=== PATIENT | female | born 1980 | race Caucasian/White ===

== ENCOUNTER 2017-02-21 12:48 | Emergency (ER) | payer SELFPAY ==
[~2017-02-21] VITALS: Ht 162.6 cm; Wt 63.5 kg
[~2017-02-21 12:48] MED LIST: FRS325T PO; PREN1TAB39 PO
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
[2017-02-21] MEDS ORDERED: HYDROCORTISONE (13:20)
[2017-02-21 13:30] VITALS: BP 130/80
== END 2017-02-21 13:30 | disposition home or self-care (01) ==
LOC: EDUNIT# 12:48 → ER 12:50
DX: H60.92 Unspecified otitis externa, left ear (principal); F17.200 Nicotine dependence, unspecified, uncomplicated
CPT/HCPCS: 99282

== ENCOUNTER 2017-04-28 17:40 | Emergency (ER) | payer MEDICAID ==
[~2017-04-28] VITALS: Ht 170.2 cm; Wt 81.7 kg
[~2017-04-28 17:40] MED LIST changes: +HYDROCORTISONE
[2017-04-28 19:17] LABS: BILIRUBIN,URINE NEGATIVE (NEGATIVE); KETONES,URINE 2+ (NEGATIVE); LEUKOCYTE ESTERASE ,URINE 3+ (NEGATIVE); NITRITE,URINE POSITIVE (NEGATIVE); PH,URINE 7 (5-9); PROTEIN,URINE 2+ (NEGATIVE); UROBILINOGEN,URINE 1 MG/DL (NORMAL)
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
[2017-04-28 19:24] LABS: WBC,URINE 50-100 /HPF
[2017-04-28 19:50] LABS: BASOPHILS % (AUTO) 0 % (0-10); EOSINOPHILS % (AUTO) 0 % (0-10); LYMPHOCYTES # (AUTO) 1.3 X 10^3 (1.0-4.0); LYMPHOCYTES % (AUTO) 8 % (12-44); MEAN CORPUSCULAR HEMOGLOBIN 33 PG (25-34); MEAN CORPUSCULAR HGB CONC 34 G/DL (32-36); MEAN CORPUSCULAR VOLUME 96 FL (80-99); MEAN PLATELET VOLUME 8.8 FL (7.4-10.4); MONOCYTES # (AUTO) 0.8 X 10^3 (0.0-1.0); MONOCYTES % (AUTO) 5 % (0-12); NEUTROPHILS # (AUTO) 13.8 X 10^3 (1.8-7.8); NEUTROPHILS % (AUTO) 86 % (42-75); PLATELET COUNT 278 10^3/uL (130-400); RED BLOOD COUNT 3.96 10^6/uL (4.35-5.85); RED CELL DISTRIBUTION WIDTH 12.3 % (10.0-14.5)
[2017-04-28 20:09] LABS: ALANINE AMINOTRANSFERASE 13 U/L (0-55); ANION GAP 15 MMOL/L (5-14); ASPARTATE AMINO TRANSFERASE 15 U/L (5-34); BILIRUBIN,TOTAL 0.9 MG/DL (0.1-1.0); BLOOD UREA NITROGEN 11 MG/DL (7-18); BUN/CREATININE RATIO 14; CARBON DIOXIDE 21 MMOL/L (21-32); CHLORIDE 102 MMOL/L (98-107); CREATININE SERUM 0.76 MG/DL (0.60-1.30); GFR ESTIMATED > 60; GLUCOSE 116 MG/DL (70-105); LIPASE 6 U/L (8-78); SODIUM 138 MMOL/L (135-145); TOTAL PROTEIN 7.4 GM/DL (6.4-8.2); hs C REACTIVE PROTEIN 7.14 MG/DL (0.00-0.50)
[2017-04-28 20:11] LABS: BAND NEUTROPHILS 4 %; BASOPHILS % (MANUAL) 0 %; EOSINOPHILS % (MANUAL) 0 %; LYMPHOCYTES % (MANUAL) 10 %; NEUTROPHILS % (MANUAL) 85 %
[2017-04-28] MEDS ORDERED: cefTRIAXone 1 GM (ROCEPHIN) VIAL IM ONE (20:15)
[2017-04-28] MEDS ORDERED: LIDOCAINE 1% INJ 20 ML (XYLOCAINE) VIAL INJ ONE (20:15)
[2017-04-28] MEDS ORDERED: CEPH500T PO (20:28)
[2017-04-28 20:41] VITALS: BP 138/84
== END 2017-04-28 20:41 | disposition home or self-care (01) ==
LOC: EDUNIT# 17:40 → ER 17:42
DX: T24.031A Burn of unspecified degree of right lower leg, initial encounter (principal); T31.0 Burns involving less than 10% of body surface; N39.0 Urinary tract infection, site not specified; F17.210 Nicotine dependence, cigarettes, uncomplicated; X19.XXXA Contact with other heat and hot substances, initial encounter
CPT/HCPCS: 36415; 80053; 80306; 81000; 83690; 84703; 85007; 85027; 86141; 87077; 87088; 87186; 96372; 99284

== ENCOUNTER 2018-06-12 00:40 | Emergency (ER) | payer MEDICAID ==
[~2018-06-12 00:40] MED LIST changes: +CEPH500T PO
--- OUTSIDE RECORDS SUMMARY | 2018-06-12 00:46 | XMS REPORT ---
Author Author JAMEL COLLIN [facility] Address [address] [place] [address] Care Team Providers Care Stereoptician Name Role Phone JAMELMACARIOCOLLIN Unavailable PROBLEMS Unknown Problems ALLERGIES No Information ENCOUNTERS Encounter Location Date Diagnosis [facility] [address] [address] Nov, [facility] [address] [address] Nov, [facility] [address] [address] Oct, Dysuria R30.0 and Exposure to STD Z20.2 [facility] [id number] [place] [address] Aug, [facility] [address] [address] Aug, Encounter for test, result unknown Z32.00 [place] [id number] [place] [address] Aug, Missed period N92.6 ; Possible exposure to STD Z20.2 ; Cervical cancer screening Z12.4 and Seborrheic keratosis L82.1 [facility] [id number] [place] [address] Nov, [place] [address] [address] Nov, [place] [address] [address] Aug, [place] [address] [place] [address] Aug, [facility] [address] [id number] [place] [address] 30 May, 2013 [facility] [place] [facility] [address] [id number] [place] [address] 30 May, 2013 [facility] [address] [id number] [place] [address] Apr, [facility] [place] [facility] [address] [id number] [place] [address] 27 Nov, 2012 [facility] [address] [id number] [place] [address] 19 Nov, 2012 [facility] [place] [facility] [address] [id number] [place] [address] 18 Nov, 2012 [facility] [address] [id number] [place] [address] 14 Nov, 2012 [facility] [address] [id number] [place] [address] Nov, [facility] [address] [id number] [place] [address] Nov, [facility] [address] [id number] [place] [address] Oct, [facility] [place] [facility] [address] [id number] [place] [address] 24 May, 2012 [facility] [place] [facility] [address] [id number] [place] [address] 24 May, 2012 [facility] [place] [facility] [address] [id number] [place] [address] 16 Feb, 2012 [facility] [place] [facility] [address] [id number] [place] [address] Jan, [facility] [place] [facility] [address] [id number] [place] [address] Nov, [facility] [place] [facility] [address] [id number] [place] [address] 26 Oct, 2011 [facility] [place] [facility] [address] [id number] [place] [address] 22 Oct, 2011 [facility] [place] [facility] [address] [id number] [place] [address] 14 Oct, 2011 [facility] [place] [facility] [address] [id number] [place] [address] 13 Oct, 2011 [facility] [place] [facility] [address] [id number] [place] [address] 12 Oct, 2011 [facility] [place] [facility] [address] [id number] [place] [address] 16 Sep, 2011 [facility] [place] [facility] [address] [id number] [place] [address] 18 Aug, 2011 [facility] [place] [facility] [address] [id number] [place] [address] 21 Jul, 2011 [facility] [place] [facility] [address] [id number] [place] [address] 15 Jul, 2011 [facility] [place] [facility] [address] [id number] [place] [address] 14 Jul, 2011 [facility] [place] [facility] [address] [id number] [place] [address] 14 Jul, 2011 [facility] [place] [facility] [address] [id number] [place] [address] 12 Jul, 2011 [facility] [place] [facility] [address] [id number] [place] [address] 08 Jul, 2011 [facility] [place] [facility] [address] [id number] [place] [address] 29 Jun, 2011 [facility] [place] [facility] [address] [id number] [place] [address] 05 Jun, 2011 [facility] [place] [facility] [address] [id number] [place] [address] Jun, [facility] [address] [facility] [id number] [place] [address] May, [facility] [address] [facility] [id number] [place] [address] May, IMMUNIZATIONS No Known Immunizations SOCIAL HISTORY Never Assessed 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
--- OUTSIDE RECORDS SUMMARY | 2018-06-12 00:46 | XMS REPORT ---
Author Author SEFERINO WAGNER [facility] Address [address] [place] [address] Care Team Providers Care Computer Applications Engineer Name Role Phone SEFERINO WAGNER Unavailable PROBLEMS Unknown Problems ALLERGIES No Information ENCOUNTERS Encounter Location Date Diagnosis [facility] [id number] [place] [address] Nov, [facility] [address] [address] Nov, [facility] [address] [address] Oct, Dysuria R30.0 and Exposure to STD Z20.2 [facility] [id number] [place] [address] Aug, [place] [address] [address] Aug, Encounter for test, result unknown Z32.00 [place] [id number] [place] [address] Aug, Missed period N92.6 ; Possible exposure to STD Z20.2 ; Cervical cancer screening Z12.4 and Seborrheic keratosis L82.1 [facility] [id number] [place] [address] Nov, [place] [address] [address] Nov, [place] [id number] [place] [address] Aug, [facility] [address] [address] Aug, [facility] [address] [id number] [place] [address] 30 May, 2013 [facility] [place] [facility] [address] [id number] [place] [address] 30 May, 2013 [facility] [place] [facility] [address] [id number] [place] [address] Apr, [facility] [place] [facility] [address] [id number] [place] [address] 27 Nov, 2012 [facility] [place] [facility] [address] [id number] [place] [address] 19 Nov, 2012 [facility] [place] [facility] [address] [id number] [place] [address] 18 Nov, 2012 [facility] [address] [id number] [place] [address]- [address] 14 Nov, 2012 [facility] [place] [facility] [address] [id number] [place] [address] Nov, [facility] [address] [id number] [place] [address] Nov, [facility] [place] [facility] [address] [id number] [place] [address] Oct, [facility] [place] [facility] [address] [id number] [place] [address] May, [facility] [place] [facility] [address] [id number] [place] [address] May, [facility] [place] [facility] [address] [id number] [place] [address] 9[address] 16 Feb, 2012 [facility] [place] [facility] [address] [id number] [place] [address] Jan, [facility] [place] [facility] [address] [id number] [place] [address]- [address] Nov, [facility] [place] [facility] [address] [id number] [place] [address]- [address] 26 Oct, 2011 [facility] [address] [id number] [place] [address]- 4[address] 22 Oct, 2011 [facility] [place] [facility] [address] [id number] [place] [address]- 8[address] 14 Oct, 2011 [facility] [place] [facility] [address] [id number] [place] [address]- 6[address] 13 Oct, 2011 [facility] [place] [facility] [address] [id number] [place] [address]- [address] 12 Oct, 2011 [facility] [place] [facility] [address] [id number] [place] [address] 44[address] 16 Sep, 2011 [facility] [place] [facility] [address] [id number] [place] [address]- 85[address] 18 Aug, 2011 [facility] [place] [facility] [address] [id number] [place] [address]- 79[address] 21 Jul, 2011 [facility] [place] [facility] [address] [id number] [place] [address] 37[address] 15 Jul, 2011 [facility] [place] [facility] [address] [id number] [place] [address]- [address] 14 Jul, 2011 [facility] [place] [facility] [address] [id number] [place] [address]- [address] 14 Jul, 2011 [facility] [place] [facility] [address] [id number] [place] [address]- 6[address] 12 Jul, 2011 [facility] [place] [facility] [address] [id number] [place] [address] 08 Jul, 2011 [facility] [place] [facility] [address] [id number] [place] [address] 29 Jun, 2011 [facility] [place] [facility] [address] [id number] [place] [address]- [address] Jun, [facility] [place] [facility] [address] [id number] [place] [address] Jun, [facility] [address] [facility] [id number] [place] [address] May, [facility] [address] [facility] [id number] [address] May, IMMUNIZATIONS No Known Immunizations SOCIAL HISTORY Never Assessed REASON FOR VISIT test (walk-in) PLAN OF CARE VITAL SIGNS MEDICATIONS Unknown Medications RESULTS No Results PROCEDURES Procedure Date Ordered Result Body Site VENIPUNCT, ROUTINE* Sep 01, 2017 CHORIONIC GONADOTROPIN ASSAY Sep 01, 2017 LAB NOT BILLED BY [facility] Sep 01, 2017 INSTRUCTIONS MEDICATIONS ADMINISTERED No Known Medications
--- OUTSIDE RECORDS SUMMARY | 2018-06-12 00:46 | XMS REPORT ---
Author Author SEFERINO WAGNER [facility] Address [address] [place] [address] Care Team Providers Care White Kid Buffer Name Role Phone SEFERINO WAGNER Unavailable PROBLEMS Unknown Problems ALLERGIES No Information ENCOUNTERS Encounter Location Date Diagnosis [facility] [id number] [place] [address] 35845- 9085 Nov, [facility] [address] [address] Nov, [facility] [address] [address] Oct, Dysuria R30.0 and Exposure to STD Z20.2 [facility] [id number] [place] [address] 10202- 0417 Aug, [place] [address] [address]77- 9310 Aug, Encounter for test, result unknown Z32.00 [place] [id number] [place] [address] 33812- 2309 Aug, Missed period N92.6 ; Possible exposure to STD Z20.2 ; Cervical cancer screening Z12.4 and Seborrheic keratosis L82.1 [facility] [id number] [place] [address] 81808- 7430 Nov, [place] [address] 18446- 6611 Nov, [place] [id number] [place] [address] 72246- 9166 Aug, [facility] [address] 067[address]- 7632 Aug, [facility] [address] [id number] [place] [address]- 5786 30 May, 2013 [facility] [place] [facility] [address] [id number] [place] [address]- 9755 30 May, 2013 [facility] [place] [facility] [address] [id number] [place] [address]- 7977 Apr, [facility] [place] [facility] [address] [id number] [place] [address]- 0777 27 Nov, 2012 [facility] [place] [facility] [address] [id number] [place] [address]- 4645 19 Nov, 2012 [facility] [place] [facility] [address] [id number] [place] [address]- 8286 18 Nov, 2012 [facility] [address] [id number] [place] [address]- 8418 14 Nov, 2012 [facility] [place] [facility] [address] [id number] [place] [address]- 9403 Nov, [facility] [address] [id number] [place] [address]- 1877 Nov, [facility] [place] [facility] [address] [id number] [place] [address]- 4201 Oct, [facility] [place] [facility] [address] [id number] [place] [address]- 9951 May, [facility] [place] [facility] [address] [id number] [place] [address]- 0062 May, [facility] [place] [facility] [address] [id number] [place] [address]- 9536 16 Feb, 2012 [facility] [place] [facility] [address] [id number] [place] [address]- 2258 Jan, [facility] [place] [facility] [address] [id number] [place] [address]- 3712 Nov, [facility] [place] [facility] [address] [id number] [place] [address]- 0375 26 Oct, 2011 [facility] [address] [id number] [place] [address]- 3730 22 Oct, 2011 [facility] [place] [facility] [address] [id number] [place] [address]- 8836 14 Oct, 2011 [facility] [place] [facility] [address] [id number] [place] [address]- 4876 13 Oct, 2011 [facility] [place] [facility] [address] [id number] [place] [address]- 2298 12 Oct, 2011 [facility] [place] [facility] [address] [id number] [place] [address]- 9825 16 Sep, 2011 [facility] [place] [facility] [address] [id number] [place] [address]- 1225 18 Aug, 2011 [facility] [place] [facility] [address] [id number] [place] [address]- 7887 21 Jul, 2011 [facility] [place] [facility] [address] [id number] [place] [address]- 0873 15 Jul, 2011 [facility] [place] [facility] [address] [id number] [place] [address]- 1485 14 Jul, 2011 [facility] [place] [facility] [address] [id number] [place] [address]- 8906 14 Jul, 2011 [facility] [place] [facility] [address] [id number] [place] [address]- 0654 12 Jul, 2011 [facility] [place] [facility] [address] [id number] [place] [address]- 1082 08 Jul, 2011 [facility] [place] [facility] [address] [id number] [place] [address]- 6803 29 Jun, 2011 [facility] [place] [facility] [address] [id number] [place] [address]- 2546 Jun, [facility] [place] [facility] [address] [id number] [place] [address]- 7606 Jun, [facility] [address] [facility] [id number] [place] [address]- 7051 May, [facility] [address] [facility] [id number] [place] [address]- 9016 May, IMMUNIZATIONS No Known Immunizations SOCIAL HISTORY Never Assessed REASON FOR VISIT STD treatment (STATE)--[facility] PLAN OF CARE VITAL SIGNS MEDICATIONS Unknown Medications RESULTS No Results PROCEDURES No Known procedures INSTRUCTIONS MEDICATIONS ADMINISTERED No Known Medications
--- OUTSIDE RECORDS SUMMARY | 2018-06-12 00:46 | XMS REPORT ---
Author Author FELIBERTO SIMPSON Organization [facility] Address [address] [place] [address] Care Team Providers Care Tape Fastener Machine Operator Name Role Phone FELIBERTO SIMPSON Unavailable PROBLEMS Unknown Problems ALLERGIES No Information ENCOUNTERS Encounter Location Date Diagnosis [facility] [id number] [place] [address] 14581- 4748 Nov, [facility] [address] [address] Nov, [facility] [id number] [place] [address] 41685 -1111 Oct, Dysuria R30.0 and Exposure to STD Z20.2 [place] [id number] [place] [address] 57972- 6642 Aug, [place] [id number] [place] [address] 81530- 3160 Aug, Encounter for test, result unknown Z32.00 [place] [id number] [place] [address] 99460- 3631 Aug, Missed period N92.6 ; Possible exposure to STD Z20.2 ; Cervical cancer screening Z12.4 and Seborrheic keratosis L82.1 [place] [id number] [place] [address] 02461- 3881 Nov, [place] [id number] [place] [address] 59189- 0498 Nov, [facility] [id number] [place] [address] 33962- 3566 Aug, [place] [id number] [place] [address]- 9932 Aug, [facility] [address] [id number] [place] [address]- 7135 30 May, 2013 [facility] [address] [id number] [place] [address]- 7129 30 May, 2013 [facility] [address] [id number] [place] [address]- 4013 Apr, [facility] [address] [id number] [place] [address]- 7924 27 Nov, 2012 [facility] [address] [id number] [place] [address]- 7653 19 Nov, 2012 [facility] [address] [id number] [place] [address]- 0382 18 Nov, 2012 [facility] [address] [id number] [place] [address]- 8445 14 Nov, 2012 [facility] [address] [id number] [place] [address]- 7264 Nov, [facility] [address] [id number] [place] [address]- 7401 Nov, [facility] [address] [id number] [place] [address]- 8701 Oct, [facility] [address] [id number] [place] [address]- 6524 May, [facility] [address] [id number] [place] [address]- 2251 May, [facility] [address] [id number] [place] [address]- 9432 16 Feb, 2012 [facility] [address] [id number] [place] [address]- 6676 Jan, [facility] [address] [id number] [place] [address]- 6553 Nov, [facility] [address] [id number] [place] [address]- 2668 26 Oct, 2011 [facility] [place] [facility] [address] [id number] [place] [address]- 2157 22 Oct, 2011 [facility] [place] [facility] [address] [id number] [place] 4511 14 Oct, 2011 [facility] [place] [facility] [address] [id number] [place] [address]- 9048 13 Oct, 2011 [facility] [place] [facility] [address] [id number] [place] [address]- 0883 12 Oct, 2011 [facility] [place] [facility] [address] [id number] [place] [address]- 1435 16 Sep, 2011 [facility] [place] [facility] [address] [id number] [place] [address]- 5527 18 Aug, 2011 [facility] [place] [facility] [address] [id number] [place] [address]- 2029 21 Jul, 2011 [facility] [place] [facility] [address] [id number] [place] [address]- 2194 15 Jul, 2011 [facility] [place] [facility] [address] [id number] [place] [address]- 8299 14 Jul, 2011 [facility] [place] [facility] [address] [id number] [place] [address]- 8896 14 Jul, 2011 [facility] [place] [facility] [address] [id number] [place] [address]- 4048 12 Jul, 2011 [facility] [place] [facility] [address] [id number] [place] [address]- 2248 08 Jul, 2011 [facility] [place] [facility] [address] [id number] [place] [address]- 0427 29 Jun, 2011 [facility] [place] [facility] [address] [id number] [place] [address]- 1959 05 Jun, 2011 [facility] [place] [facility] [address] [id number] [place] [address]- 0626 Jun, [facility] [address] [facility] [id number] [place] [address]- 1423 May, [facility] [address] [facility] [id number]- 8563 May, IMMUNIZATIONS No Known Immunizations SOCIAL HISTORY Never Assessed REASON FOR VISIT PLAN OF CARE VITAL SIGNS MEDICATIONS Unknown Medications RESULTS No Results PROCEDURES No Known procedures INSTRUCTIONS MEDICATIONS ADMINISTERED No Known Medications
--- OUTSIDE RECORDS SUMMARY | 2018-06-12 00:46 | XMS REPORT ---
Author Author JAMEL COLLIN [facility] Address [address] [place] [address] Care Team Providers Care Rn X Ray Name Role Phone JAMEL COLLIN Unavailable PROBLEMS Unknown Problems ALLERGIES No Known Allergies ENCOUNTERS Encounter Location Date Diagnosis [facility] [id number] [place] [address] 29712- 4976 Nov, [facility] [address] [address] Nov, [facility] [address] [address] Oct, Dysuria R30.0 and Exposure to STD Z20.2 [facility] [id number] [place] [address] 42774- 3240 Aug, [facility] [address] 38334- 6219 Aug, Encounter for test, result unknown Z32.00 [place] [id number] [place] [address] 66773- 0753 Aug, Missed period N92.6 ; Possible exposure to STD Z20.2 ; Cervical cancer screening Z12.4 and Seborrheic keratosis L82.1 [facility] [id number] [place] [address] 53673- 5484 Nov, [place] [address] 80508- 8832 Nov, [place] [address] 28488- 9434 Aug, [place] [address] [place] [address]- 8418 Aug, [facility] [address] [id number] [place] [address]- 6413 30 May, 2013 [facility] [place] [facility] [address] [id number] [place] [address]- 0899 30 May, 2013 [facility] [address] [id number] [place] [address]- 6592 Apr, [facility] [place] [facility] [address] [id number] [place] [address]- 4995 27 Nov, 2012 [facility] [address] [id number] [place] [address]- 1657 19 Nov, 2012 [facility] [place] [facility] [address] [id number] [place] [address]- 9074 18 Nov, 2012 [facility] [address] [id number] [place] [address]- 8983 14 Nov, 2012 [facility] [address] [id number] [place] [address]- 2399 Nov, [facility] [address] [id number] [place] [address]- 9892 Nov, [facility] [address] [id number] [place] [address]- 8116 Oct, [facility] [address] [id number] [place] [address]- 2201 May, [facility] [place] [facility] [address] [id number] [place] [address]- 4234 May, [facility] [place] [facility] [address] [id number] [place] [address]- 1705 16 Feb, 2012 [facility] [place] [facility] [address] [id number] [place] [address]- 9362 Jan, [facility] [address] [id number] [place] [address]- 6900 Nov, [facility] [place] [facility] [address] [id number] [place] [address]- 1310 26 Oct, 2011 [facility] [place] [facility] [address] [id number] [place] [address]- 7879 22 Oct, 2011 [facility] [place] [facility] [address] [id number] [place] [address]- 6054 14 Oct, 2011 [facility] [place] [facility] [address] [id number] [place] [address]- 6270 13 Oct, 2011 [facility] [place] [facility] [address] [id number] [place] [address]- 8590 12 Oct, 2011 [facility] [place] [facility] [address] [id number] [place] [address]- 6956 16 Sep, 2011 [facility] [place] [facility] [address] [id number] [place] [address]- 6434 18 Aug, 2011 [facility] [address] [id number] [place] [address]- 2570 21 Jul, 2011 [facility] [place] [facility] [address] [id number] [place] [address]- 9929 15 Jul, 2011 [facility] [place] [facility] [address] [id number] [place] [address]- 1105 14 Jul, 2011 [facility] [place] [facility] [address] [id number] [place] [address]- 2917 14 Jul, 2011 [facility] [place] [facility] [address] [id number] [place] [address]- 9881 12 Jul, 2011 [facility] [place] [facility] [address] [id number] [place] [address]- 0164 08 Jul, 2011 [facility] [place] [facility] [address] [id number] [place] [address]- 8690 29 Jun, 2011 [facility] [place] [facility] [address] [id number] [place] [address]- 7974 05 Jun, 2011 [facility] [place] [facility] [address] [id number] [place] [address] 2546 Jun, [facility] [address] [facility] [id number] [place] [address]- 2546 May, [facility] [address] [facility] [id number] [place] [address]- 2546 May, IMMUNIZATIONS No Known Immunizations SOCIAL HISTORY Never Assessed REASON FOR VISIT STD check, No known exposure or symptoms. Also states she is late for her period this month. LMP 07/22/17. -MARC Mac PLAN OF CARE Activity Details Follow Up prn if no period, 1 year well woman Reason: VITAL SIGNS Height 67 in 2017-08-26 Weight 178 lbs 2017-08-26 Temperature 98.4 degrees Fahrenheit 2017-08-26 Heart Rate 96 bpm 2017-08-26 Respiratory Rate 18 2017-08-26 BMI 27.88 kg/m2 2017-08-26 Blood pressure systolic 110 mmHg 2017-08-26 Blood pressure diastolic 70 mmHg 2017-08-26 MEDICATIONS Unknown Medications RESULTS No Results PROCEDURES Procedure Date Ordered Result Body Site URINE TEST Aug 26, 2017 SPECIMEN HANDLING Aug 26, 2017 INSTRUCTIONS MEDICATIONS ADMINISTERED No Known Medications
--- OUTSIDE RECORDS SUMMARY | 2018-06-12 00:46 | XMS REPORT ---
Author Author FELIBERTO SIMPSON [facility] Address [address] [place] [address] Care Team Providers Care Automatic Vulcanizing Lead Operator Name Role Phone FELIBERTO SIMPSON Unavailable PROBLEMS Unknown Problems ALLERGIES No Known Allergies ENCOUNTERS Encounter Location Date Diagnosis [place] [id number] [place] [address] 47521- 2987 Nov, [facility] [address] [address] Nov, [facility] [address] 784[address] -3373 Oct, Dysuria R30.0 and Exposure to STD Z20.2 [place] [id number] [place] [address] 06341- 3578 Aug, [place] [address] 11740- 9191 Aug, Encounter for test, result unknown Z32.00 [place] [id number] [place] [address] 52755- 0270 Aug, Missed period N92.6 ; Possible exposure to STD Z20.2 ; Cervical cancer screening Z12.4 and Seborrheic keratosis L82.1 [place] [id number] [place] [address] 14346- 9606 Nov, [place] [address] 50724- 3896 Nov, [place] [id number] [place] [address] 64903- 9913 Aug, [place] [address] [address] [id number] [address]- 2000 Aug, [facility] [address] [id number] [place] [address]- 4320 May, [facility] [address] [id number] [place] [address]- 8877 30 May, 2013 [facility] [address] [id number] [place] [address]- 1166 Apr, [facility] [address] [id number] [place] [address]- 3640 27 Nov, 2012 [facility] [address] [id number] [place] [address]- 2983 19 Nov, 2012 [facility] [address] [id number] [place] [address]- 6593 18 Nov, 2012 [facility] [address] [id number] [place] [address]- 0016 14 Nov, 2012 [facility] [address] [id number] [place] [address]- 2650 Nov, [facility] [address] [id number] [place] [address]- 4595 Nov, [facility] [address] [id number] [place] [address]- 1860 Oct, [facility] [address] [id number] [place] [address]- 1327 May, [facility] [address] [id number] [place] [address]- 2983 May, [facility] [place] [facility] [address] [id number] [place] [address]- 6218 Jan, [facility] [address] [id number] [place] [address]- 2546 Jan, [facility] [address] [id number] [place] [address]- 4203 Nov, [facility] [address] [id number] [place] [address]- 5112 26 Oct, 2011 [facility] [place] [facility] [address] [id number] [place] [address]- 2576 22 Oct, 2011 [facility] [place] [facility] [address] [id number] [place] [address]- 6235 14 Oct, 2011 [facility] [place] [facility] [address] [id number] [place] [address]- 2297 13 Oct, 2011 [facility] [place] [facility] [address] [id number] [place] [address]- 8649 12 Oct, 2011 [facility] [place] [facility] [address] [id number] [place] [address]- 8285 16 Sep, 2011 [facility] [place] [facility] [address] [id number] [place] [address]- 1925 18 Aug, 2011 [facility] [place] [facility] [address] [id number] [place] [address]- 8922 21 Jul, 2011 [facility] [place] [facility] [address] [id number] [place] [address]- 5604 15 Jul, 2011 [facility] [place] [facility] [address] [id number] [place] [address]- 0303 14 Jul, 2011 [facility] [place] [facility] [address] [id number] [place] [address]- 6776 14 Jul, 2011 [facility] [place] [facility] [address] [id number] [place] [address]- 3359 12 Jul, 2011 [facility] [place] [facility] [address] [id number] [place] [address] 08 Jul, 2011 [facility] [place] [facility] [address] [id number] [place] [address] 29 Jun, 2011 [facility] [place] [facility] [address] [id number] [place] [address] 05 Jun, 2011 [facility] [place] [facility] [address] [facility] [id number] [place] [address] Jun, [facility] [address] [facility] [id number] [place] [address] May, [facility] [address] [facility] [id number] [place] [address] May, IMMUNIZATIONS No Known Immunizations SOCIAL HISTORY Never Assessed REASON FOR VISIT wants std testing for unprotected sex. [email or web address] PLAN OF CARE Activity Details Follow Up prn Reason: VITAL SIGNS Height 67 in 2017-10-30 Weight 178.4 lbs 2017-10-30 Temperature 97.8 degrees Fahrenheit 2017-10-30 Heart Rate 90 bpm 2017-10-30 Respiratory Rate 20 2017-10-30 BMI 27.94 kg/m2 2017-10-30 Blood pressure systolic 116 mmHg 2017-10-30 Blood pressure diastolic 74 mmHg 2017-10-30 MEDICATIONS Unknown Medications RESULTS No Results PROCEDURES Procedure Date Ordered Result Body Site URINALYSIS, AUTO, W/O SCOPE October 30, 2017 No Charge October 30, 2017 Bacterial Vaginosis In House October 30, 2017 LAB NOT BILLED BY [facility] October 30, 2017 INSTRUCTIONS MEDICATIONS ADMINISTERED No Known Medications
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
== END 2018-06-12 01:11 | disposition left against medical advice (07) ==
LOC: EDUNIT# 00:40 → ER 00:42
DX: O26.899 Other specified pregnancy related conditions, unspecified trimester (principal); Z3A.00 Weeks of gestation of pregnancy not specified

== ENCOUNTER 2018-10-21 20:05 | Emergency (ER) | payer SELFPAY ==
[~2018-10-21] VITALS: Ht 167.6 cm; Wt 72.6 kg
[2018-10-21] MEDS ORDERED: KETOROLAC 30 MG/ML VIAL IVP ONE (20:45)
[2018-10-21] MEDS ORDERED: cefTRIAXone FOR IV USE 1,000 MG in WATER (STERILE) FOR INJECTION 10 ML IV ONE (20:45)
[2018-10-21] MEDS ORDERED: AZITHROMYCIN 250 MG TAB (ZITHROMAX) PO SCH (20:45)
[2018-10-21 20:47] LABS: BASOPHILS % (AUTO) 0 % (0-10); CLARITY,URINE VERY CLOUDY; COLOR,URINE AMBER; EOSINOPHILS # (AUTO) 0.1 10^3/uL (0.0-0.3); EOSINOPHILS % (AUTO) 1 % (0-10); GLUCOSE, URINE (UA) NEGATIVE (NEGATIVE); HEMATOCRIT 40 % (35-52); KETONES,URINE 3+ (NEGATIVE); LEUKOCYTE ESTERASE ,URINE 3+ (NEGATIVE); LYMPHOCYTES # (AUTO) 1.1 X 10^3 (1.0-4.0); LYMPHOCYTES % (AUTO) 6 % (12-44); MEAN CORPUSCULAR HEMOGLOBIN 31 PG (25-34); MEAN CORPUSCULAR HGB CONC 33 G/DL (32-36); MEAN CORPUSCULAR VOLUME 95 FL (80-99); MEAN PLATELET VOLUME 9.2 FL (7.4-10.4); MONOCYTES # (AUTO) 0.6 X 10^3 (0.0-1.0); MONOCYTES % (AUTO) 3 % (0-12); NEUTROPHILS % (AUTO) 90 % (42-75); NITRITE,URINE NEGATIVE (NEGATIVE); PH,URINE 7 (5-9); PLATELET COUNT 287 10^3/uL (130-400); PROTEIN,URINE 2+ (NEGATIVE); RED CELL DISTRIBUTION WIDTH 14.3 % (10.0-14.5); UROBILINOGEN,URINE 4 MG/DL (NORMAL); WHITE BLOOD COUNT 17.8 10^3/uL (4.3-11.0)
--- NOTE | 2018-10-21 20:49 | ED Abdominal Pain ---
General Chief Complaint: Abdominal/GI Problems Stated Complaint: ABD PAIN Source of Information: Patient Exam Limitations: No Limitations History of Present Illness Date Seen by Provider: Oct 21, 2018 Time Seen by Provider: 20:48 Initial Comments Diffuse abdominal pain most intense in the lower abdomen and radiates through to her back. No nausea vomiting or change in bowel habits. No fevers or chills. History of an STD and this feels similar. She started with some vaginal discharge today. Timing/Duration: 1-2 Days Severity/Quality: Moderate Location: Generalized Abdomen, Suprapubic Radiation: No Radiation Activities at Onset: None Associated Symptoms: No Fever/Chills, No Nausea/Vomiting Allergies and Home Medications Allergies Coded Allergies: No Known Drug Allergies (Unverified , 11/23/10) Home Medications Cephalexin 500 Mg Tablet, 500 MG PO BID Prescribed by: SUSAN BAZZI on 04/28/172027 [Hydrocortisone otic] , 3 DROPS 3 times a day Prescribed by: BARBRA CARDOZA on 02/21/17 1320 Patient Home Medication List Home Medication List Reviewed: Yes Review of Systems Review of Systems Constitutional: see HPI; No chills, No fever EENTM: No Symptoms Reported Respiratory: No Symptoms Reported Cardiovascular: No Symptoms Reported Gastrointestinal: See HPI, Abdominal Pain; Denies Constipated, Denies Diarrhea , Denies Nausea, Denies Vomiting Genitourinary: See HPI, Discharge Musculoskeletal: see HPI, back pain Skin: no symptoms reported Psychiatric/Neurological: No Symptoms Reported Endocrine: No Symptoms Reported Hematologic/Lymphatic: No Symptoms Reported Past Apwgufv-Zgnkgf-Mxxkms Hx Patient Social History Type Used: Cigarettes 2nd Hand Smoke Exposure: Yes Recent Foreign Travel: No Contact w/Someone Who Travel: No Recent Hopitalizations: No Immunizations Up To Date Tetanus Booster (TDap): Less than 5yrs Date of Influenza Vaccine: May 22, 2011 Seasonal Allergies Seasonal Allergies: No Past Medical History Surgeries: No Respiratory: No Cardiac: No Neurological: No Reproductive Disorders: No Gastrointestinal: Yes Musculoskeletal: No Endocrine: No Cancer: No Psychosocial: No Integumentary: No Blood Disorders: No Adverse Reaction/Blood Tranf: No Physical Exam Vital Signs Vital Signs - First Documented 10/21/18 21:46 Temp 98.8 Resp 18 B/P (MAP) 107/77 (87) Pulse Ox 98 O2 Delivery Room Air Capillary Refill : Height/Weight/BMI Height: 5'7.00" Weight: 180lbs. 0.8oz. 81.271799el; 32.26 BMI Method:Stated General Appearance: WD/WN, no apparent distress HEENT: PERRL/EOMI, normal ENT inspection Respiratory: no respiratory distress, no accessory muscle use Gastrointestinal: normal bowel sounds, soft, tenderness (suprapubic) Extremities: normal range of motion, non-tender Pelvic: tender w/ cervical motion, other (Pelvic exam done with female patient career information specialist at the bedside. There is a mucopurulent cervical discharge. There is cervical motion tenderness.) Neurologic/Psychiatric: alert, normal mood/affect, oriented x 3 Skin: normal color, warm/dry Procedures/Interventions Suture Size: 6-0 Progress/Results/Core Measures Results/Orders Lab Results Laboratory Tests Test 10/21/18 20:19 10/21/18 21:30 Range/Units White Blood Count 17.8 H 4.3-11.0 10^3/uL Red Blood Count 4.18 L 4.35-5.85 10^6/uL Hemoglobin 13.0 11.5-16.0 G/DL Hematocrit 40 35-52 % Mean Corpuscular Volume 95 80-99 FL Mean Corpuscular Hemoglobin 31 25-34 PG Mean Corpuscular Hemoglobin Concent 33 32-36 G/DL Red Cell Distribution Width 14.3 10.0-14.5 % Platelet Count 287 130-400 10^3/uL Mean Platelet Volume 9.2 7.4-10.4 FL Neutrophils (%) (Auto) 90 H 42-75 % Lymphocytes (%) (Auto) 6 L 12-44 % Monocytes (%) (Auto) 3 0-12 % Eosinophils (%) (Auto) 1 0-10 % Basophils (%) (Auto) 0 0-10 % Neutrophils # (Auto) 16.0 H 1.8-7.8 X 10^3 Lymphocytes # (Auto) 1.1 1.0-4.0 X 10^3 Monocytes # (Auto) 0.6 0.0-1.0 X 10^3 Eosinophils # (Auto) 0.1 0.0-0.3 10^3/uL Basophils # (Auto) 0.0 0.0-0.1 10^3/uL Neutrophils % (Manual) 83 % Lymphocytes % (Manual) 8 % Monocytes % (Manual) 1 % Eosinophils % (Manual) 0 % Basophils % (Manual) 0 % Band Neutrophils 8 % Blood Morphology Comment NORMAL Urine Color ELADIO H Urine Clarity VERY CLOUDY H Urine pH 7 5-9 Urine Specific [place] 1.010 L 1.016-1.022 Urine Protein 2+ H NEGATIVE Urine Glucose (UA) NEGATIVE NEGATIVE Urine Ketones 3+ H NEGATIVE Urine Nitrite NEGATIVE NEGATIVE Urine Bilirubin 1+ H NEGATIVE Urine Urobilinogen 4 H NORMAL MG/DL Urine Leukocyte Esterase 3+ H NEGATIVE Urine RBC (Auto) 1+ H NEGATIVE Urine RBC 0-2 /HPF Urine WBC 50-100 H /HPF Urine Crystals NONE /LPF Urine Bacteria FEW H /HPF Urine Casts NONE /LPF Urine Mucus LARGE H /LPF Urine Culture Indicated YES Sodium Level 138 135-145 MMOL/L Potassium Level 3.6 3.6-5.0 MMOL/L Chloride Level 104 98-107 MMOL/L Carbon Dioxide Level 21 21-32 MMOL/L Anion Gap 13 5-14 MMOL/L Blood Urea Nitrogen 12 7-18 MG/DL Creatinine 0.89 0.60-1.30 MG/DL Estimat Glomerular Filtration Rate > 60 BUN/Creatinine Ratio 13 Glucose Level 141 H 70-105 MG/DL Calcium Level 9.4 8.5-10.1 MG/DL Corrected Calcium 9.4 8.5-10.1 MG/DL Total Bilirubin 2.3 H 0.1-1.0 MG/DL Aspartate Amino Transf (AST/SGOT) 15 5-34 U/L Alanine Aminotransferase (ALT/SGPT) 13 0-55 U/L Alkaline Phosphatase 74 40-136 U/L Total Protein 6.9 6.4-8.2 GM/DL Albumin 4.0 3.2-4.5 GM/DL Lipase 6 L 8-78 U/L Serum Test, Qualitative NEGATIVE NEGATIVE My Orders Orders - COLEEN APONTE APRN Cbc With Automated Diff (10/21/18 20:36) Comprehensive Metabolic Panel (10/21/18 20:36) Ua Culture If Indicated (10/21/18 20:36) Hcg,Qualitative Serum (10/21/18 20:36) Iv Heplock-Insert (Order) (10/21/18 20:36) Lipase (10/21/18 20:36) Wet Prep (10/21/18 20:36) Neisseria Gonorrhea Swab (10/21/18 20:36) Genital Culture (10/21/18 20:36) Chlamydia Trachomatis Swab (10/21/18 20:36) Ceftriaxone For Iv Use (Rocephin For I (10/21/18 20:45) Azithromycin Tablet (Zithromax Tablet) (10/21/18 20:45) Ketorolac Injection (Toradol Injection) (10/21/18 20:45) Manual Differential (10/21/18 20:19) Urine Culture (10/21/18 20:19) Ct Abd/Pelv W (Appendicitis) (10/21/18 21:15) Iohexol Injection (Omnipaque 350 Mg/Ml 1 (10/21/18 21:45) Received Contrast (Hold Metformin- Contr (10/21/18 21:45) Medications Given in ED Current Medications Medications Dose Ordered Sig/Paulo Route Start Time Stop Time Status Last Admin Dose Admin Ceftriaxone Sodium 1000 mg/ Sterile Water 10 ml @ 200 mls/hr ONCE ONCE IV 10/21/18 20:45 10/21/18 20:47 DC 10/21/18 22:00 200 MLS/HR Iohexol 100 ml ONCE ONCE IV 10/21/18 21:45 10/21/18 21:46 DC 10/21/18 21:43 100 ML Ketorolac Tromethamine 15 mg ONCE ONCE IVP 10/21/18 20:45 10/21/18 20:46 DC 10/21/18 21:02 15 MG Vital Signs/I&O 10/21/18 21:46 Temp 98.8 Resp 18 B/P (MAP) 107/77 (87) Pulse Ox 98 O2 Delivery Room Air Departure Communication (Admissions) 2210-I discussed the case with Dr. Grant. She agrees with Rocephin and Zithromax here, discharged home on doxycycline and Flagyl. She'll have Yaima from [facility] call the patient tomorrow to set up an appointment to be seen later next week. Symptoms are likely on the basis of pelvic inflammatory disease. Impression Primary Impression: PID (acute pelvic inflammatory disease) Disposition: 01 HOME, SELF-CARE Condition: Stable Departure-Patient Inst. Decision time for Depature: 21:33 Referrals: [facility] (PCP/Family) Primary Care Physician OTONIEL GRANT MD Patient Instructions: Pelvic Inflammatory Disease Add. Discharge Instructions: If [facility] has not called U by noon tomorrow, call them at [phone]. Dr. Grant or one of the other physicians or nurse practitioners at [facility] will follow-up with U next week. He will need to have a pelvic ultrasound scheduled and repeat blood work. In the meantime return to the emergency room for worsening pain, fevers or other concerns. Take the antibiotic as directed and do not mix with alcohol. Scripts Hydrocodone/Acetaminophen ([place] 5-325 Tablet) 1 Each Tablet 1 EACH PO Q6H PRN for PAIN-MODERATE MDD 10, #10 TAB do not fill unless doxycycline and metronidazole are also filled Prov: COLEEN APONTE APRN 10/21/18 Metronidazole (Flagyl) 500 Mg Tablet 500 MG PO BID, #15 TAB Prov: COLEEN APONTE APRN 10/21/18 Doxycycline Hyclate (Doxycycline Hyclate) 100 Mg Tablet 100 MG PO BID, #14 TAB Prov: COLEEN APONTE APRN 10/21/18 COLEEN APONTE APRN Oct 21, 2018 20:49
[2018-10-21 21:04] LABS: BACTERIA,URINE FEW /HPF; BILIRUBIN,URINE 1+ (NEGATIVE); RBC,URINE 0-2 /HPF; WBC,URINE 50-100 /HPF
[2018-10-21 21:08] LABS: BAND NEUTROPHILS 8 %; BASOPHILS % (MANUAL) 0 %; EOSINOPHILS % (MANUAL) 0 %; LYMPHOCYTES % (MANUAL) 8 %; MONOCYTES % (MANUAL) 1 %; NEUTROPHILS % (MANUAL) 83 %; RBC MORPH NORMAL
[2018-10-21 21:09] LABS: ALANINE AMINOTRANSFERASE 13 U/L (0-55); ALKALINE PHOSPHATASE 74 U/L (40-136); BILIRUBIN,TOTAL 2.3 MG/DL (0.1-1.0); BUN/CREATININE RATIO 13; CALCIUM 9.4 MG/DL (8.5-10.1); CARBON DIOXIDE 21 MMOL/L (21-32); CHLORIDE 104 MMOL/L (98-107); CREATININE SERUM 0.89 MG/DL (0.60-1.30); GFR ESTIMATED > 60; GLUCOSE 141 MG/DL (70-105); LIPASE 6 U/L (8-78); POTASSIUM 3.6 MMOL/L (3.6-5.0); SODIUM 138 MMOL/L (135-145); TOTAL PROTEIN 6.9 GM/DL (6.4-8.2)
[2018-10-21] MEDS ORDERED: HOLD METFORMIN - RECEIVED CONTRAST 20 ML VIAL IV SCH (21:45)
[2018-10-21] MEDS ORDERED: IOHEXOL 350 MG/ML 100 ML (OMNIPAQUE 350) VIAL IV ONE (21:45)
--- NOTE | 2018-10-21 22:02 | Diagnostic Imaging Report ---
PROCEDURE: CT abdomen and pelvis with contrast, rule out appendicitis. TECHNIQUE: Multiple contiguous axial images were obtained through the abdomen and pelvis after the administration of intravenous contrast. INDICATION: Lower abdominal pain COMPARISON: None available. FINDINGS: Lower chest: The lung bases are clear. No pericardial or pleural effusion. Peritoneum: No free intraperitoneal air or fluid. Liver and biliary system: The liver is normal. The gallbladder is normal. No biliary duct dilation. Spleen and Pancreas: Spleen is normal. The pancreas enhances normally without mass lesion or peripancreatic inflammatory changes. Adrenals: Normal. tract: The kidneys enhance normally without suspicious mass or obstruction. Urinary bladder is distended without wall thickening. Uterus and ovaries are normal in appearance. There are multiple mildly dilated vessels surrounding the uterus. GI tract: Stomach is filled with fluid and food debris. No bowel obstruction. The majority of the small bowel and colon is fluid-filled likely due to an enteritis. Normal appendix. Vasculature and Lymph nodes: Normal caliber aorta. No abdominal or pelvic lymphadenopathy. Musculoskeletal: No concerning osseous lesion. IMPRESSION: 1. No bowel obstruction. Imaging features suggest enteritis. 2. Normal appendix. 3. Numerous dilated vessels surrounding the uterus can be seen with pelvic congestion syndrome. Dictated by: Dictated on workstation # [id number]
[2018-10-21] MEDS ORDERED: HYDR-4226 PO (22:13)
[2018-10-21] MEDS ORDERED: DOXY100T2 PO (22:13)
[2018-10-21] MEDS ORDERED: METR500T PO (22:13)
[2018-10-21 22:18] VITALS: BP 115/75
[2018-10-21] MEDS ORDERED: HYDROcodone/APAP 5 MG/325 MG (LORTAB) TAB PO ONE (22:30)
== END 2018-10-21 22:34 | disposition home or self-care (01) ==
LOC: EDUNIT# 20:05 → ER 20:05
DX: N73.9 Female pelvic inflammatory disease, unspecified (principal); Z79.51 Long term (current) use of inhaled steroids; Z77.22 Contact with and (suspected) exposure to environmental tobacco smoke (acute) (chronic)
CPT/HCPCS: 36415; 74177; 80053; 81000; 83690; 84703; 85007; 85027; 87070; 87088; 87205; 87210; 87491; 87591

== ENCOUNTER 2018-11-29 23:34 | Emergency (ER) | payer OTHER ==
[~2018-11-29] VITALS: Ht 167.6 cm; Wt 72.6 kg
[~2018-11-29 23:34] MED LIST changes: +DOXY100T2 PO; +HYDR-4226 PO; +METR500T PO
[2018-11-30] MEDS ORDERED: TETANUS,DIPTH,PERTUSS P/F (BOOSTRIX) 0.5 ML VIAL IM ONE
[2018-11-30] MEDS ORDERED: LIDOCAINE/EPI 2% 1:100,00 (XYLOCAINE) 20 ML VIAL INJ ONE
[2018-11-30 00:30] LABS: BASOPHILS % (AUTO) 0 % (0-10); EOSINOPHILS # (AUTO) 0.2 10^3/uL (0.0-0.3); EOSINOPHILS % (AUTO) 3 % (0-10); HEMATOCRIT 37 % (35-52); LYMPHOCYTES # (AUTO) 1.9 X 10^3 (1.0-4.0); LYMPHOCYTES % (AUTO) 35 % (12-44); MEAN CORPUSCULAR HEMOGLOBIN 32 PG (25-34); MEAN CORPUSCULAR HGB CONC 33 G/DL (32-36); MEAN CORPUSCULAR VOLUME 97 FL (80-99); MEAN PLATELET VOLUME 8.8 FL (7.4-10.4); MONOCYTES # (AUTO) 0.7 X 10^3 (0.0-1.0); MONOCYTES % (AUTO) 13 % (0-12); NEUTROPHILS # (AUTO) 2.6 X 10^3 (1.8-7.8); NEUTROPHILS % (AUTO) 49 % (42-75); PLATELET COUNT 242 10^3/uL (130-400); WHITE BLOOD COUNT 5.4 10^3/uL (4.3-11.0)
[2018-11-30 00:51] LABS: ALANINE AMINOTRANSFERASE 48 U/L (0-55); ALBUMIN 4.2 GM/DL (3.2-4.5); ALKALINE PHOSPHATASE 53 U/L (40-136); BILIRUBIN,TOTAL 0.4 MG/DL (0.1-1.0); BUN/CREATININE RATIO 10; CALCIUM 9.2 MG/DL (8.5-10.1); CARBON DIOXIDE 20 MMOL/L (21-32); CHLORIDE 107 MMOL/L (98-107); CREATININE SERUM 0.81 MG/DL (0.60-1.30); GFR ESTIMATED > 60; GLUCOSE 100 MG/DL (70-105); POTASSIUM 3.1 MMOL/L (3.6-5.0); SODIUM 143 MMOL/L (135-145); TOTAL PROTEIN 6.9 GM/DL (6.4-8.2)
[2018-11-30] MEDS ORDERED: ONDANSETRON 4 MG/2 ML (SDV) Z0FRAN IVP ONE (01:45)
[2018-11-30] MEDS ORDERED: KCL 10 MEQ TAB (MICRO K) PO ONE (01:45)
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
[2018-11-30] MEDS ORDERED: ONDANSETRON 4 MG (ZOFRAN) ORAL DISSOLVE TAB SL ONE (02:30)
[2018-11-30 02:33] VITALS: BP 137/88
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
== END 2018-11-30 02:36 ==
LOC: EDUNIT# 23:34 → ER 23:36
DX: S01.81XA Laceration without foreign body of other part of head, initial encounter (principal); F10.129 Alcohol abuse with intoxication, unspecified; M54.2 Cervicalgia; E87.6 Hypokalemia; Z23 Encounter for immunization; Z77.22 Contact with and (suspected) exposure to environmental tobacco smoke (acute) (chronic); V44.5XXA Car driver injured in collision with heavy transport vehicle or bus in traffic accident, initial encounter
CPT/HCPCS: 36415; 70450; 72125; 80053; 80320; 84703; 85025; 90715

== ENCOUNTER 2021-01-08 13:17 | Emergency (ER) | payer SELFPAY ==
[~2021-01-08] VITALS: Ht 172 cm; Wt 80.0 kg
--- NOTE | 2021-01-08 14:03 | ED Abdominal Pain ---
General Chief Complaint: Abdominal/GI Problems Stated Complaint: LLQ PAIN-8 WKS PREG Nursing Triage Note: PT AMB TO ROOM 4 PT CO OF L LOWER ABD PAIN, PT IS APPROX 8 WEEKS . PT STATES WAS SEEN BY [facility] ON THURSDAY AND DX W TRICH, PT IS CURRENTLY TAKING FLAGYL. Sepsis Screen: No Definite Risk History of Present Illness Date Seen by Provider: Jan 08, 2021 Time Seen by Provider: 13:35 Initial Comments Patient is a 40-year-old female who presents to the emergency department today with a chief complaint of left pelvic pain and flank pain. SHe is approximately 9 weeks by dates. . Patient states this pain has been coming on over the last 3 or 4 days. She was seen at [facility] last Thursday and diagnosed with trichomonas. She was given a prescription of Flagyl. She denies any burning with urination increased frequency or urgency. She states that they told her she possibly would have a urinary tract infection but they have not called her to give her any results of her urine test. Patient states her last menstrual period was November 05. This places her at 9 weeks and 1 day. Patient has taken some tylenol for her pain - last dose was last night. She denies vaginal bleeding/discharge. No burning with urination. No n/v/d. Allergies and Home Medications Allergies Coded Allergies: No Known Drug Allergies (Unverified , 11/23/10) Home Medications Cephalexin 500 Mg Tablet, 500 MG PO BID Prescribed by: SUSAN BAZZI on 04/28/172027 Doxycycline Hyclate 100 Mg Tablet, 100 MG PO BID Prescribed by: COLEEN APONTE on 10/21/182212 Hydrocodone/Acetaminophen 1 Each Tablet, 1 EACH PO Q6H PRN for PAIN-MODERATE do not fill unless doxycycline and metronidazole are also filled Prescribed by: COLEEN APONTE on 10/21/182212 Metronidazole 500 Mg Tablet, 500 MG PO BID Prescribed by: COLEEN APONTE on 10/21/182212 [Hydrocortisone otic] , 3 DROPS 3 times a day Prescribed by: BARBRA CARDOZA on 02/21/17 1320 Patient Home Medication List Home Medication List Reviewed: Yes Review of Systems Review of Systems Constitutional: no symptoms reported EENTM: See HPI Respiratory: No Symptoms Reported Cardiovascular: No Symptoms Reported Gastrointestinal: Abdominal Pain Genitourinary: No Symptoms Reported Musculoskeletal: no symptoms reported Skin: no symptoms reported All Other Systems Reviewed Negative Unless Noted: Yes Past Ntrjtsu-Ofdthb-Euormf Hx Patient Social History Type Used: Cigarettes 2nd Hand Smoke Exposure: Yes Recent Infectious Disease Expo: No Recent Hopitalizations: No Immunizations Up To Date Tetanus Booster (TDap): Less than 5yrs Date of Influenza Vaccine: May 22, 2011 Seasonal Allergies Seasonal Allergies: No Past Medical History Surgeries: No Respiratory: No Cardiac: No Neurological: No : Yes Last Menstrual Period: Nov 05, 2020 Reproductive Disorders: No Gastrointestinal: Yes Musculoskeletal: No Endocrine: No HEENT: No Cancer: No Psychosocial: No Integumentary: No Blood Disorders: No Adverse Reaction/Blood Tranf: No Physical Exam Vital Signs Vital Signs - First Documented 01/08/21 13:37 Temp 36.9 Pulse 101 Resp 18 B/P (MAP) 116/79 (91) Pulse Ox 100 Capillary Refill : Less Than 3 Seconds Height/Weight/BMI Height: 5'6.00" Weight: 160lbs. 0.8oz. 72.402802mg; 27.00 BMI Method:Stated General Appearance: WD/WN, no apparent distress HEENT: PERRL/EOMI Neck: full range of motion Respiratory: lungs clear, normal breath sounds, no respiratory distress, no accessory muscle use Cardiovascular: regular rate, rhythm Gastrointestinal: normal bowel sounds, soft, tenderness (mild tenderness to palpation Left flank/low abdomen) Extremities: non-tender, normal inspection, no pedal edema, no calf tenderness Back: normal inspection, no CVA tenderness Pelvic: other (deferred) Neurologic/Psychiatric: alert, normal mood/affect, oriented x 3 Skin: normal color, warm/dry Procedures/Interventions Suture Size: 6-0 Progress/Results/Core Measures Results/Orders Lab Results Laboratory Tests Test 01/08/21 14:09 Range/Units Urine Color YELLOW Urine Clarity CLEAR Urine pH 7.0 5-9 Urine Specific [place] <=1.005 1.016-1.022 Urine Protein NEGATIVE NEGATIVE Urine Glucose (UA) NEGATIVE NEGATIVE Urine Ketones NEGATIVE NEGATIVE Urine Nitrite NEGATIVE NEGATIVE Urine Bilirubin NEGATIVE NEGATIVE Urine Urobilinogen 0.2 < = 1.0 MG/DL Urine Leukocyte Esterase TRACE H NEGATIVE Urine RBC (Auto) NEGATIVE NEGATIVE Urine RBC NONE /HPF Urine WBC RARE /HPF Urine Squamous Epithelial Cells 5-10 /HPF Urine Crystals NONE /LPF Urine Bacteria TRACE /HPF Urine Casts NONE /LPF Urine Mucus NEGATIVE /LPF Urine Culture Indicated NO My Orders Orders - APPLE MEZA MD Ua Culture If Indicated (01/08/21 13:58) Acetaminophen Tablet (Tylenol Tablet) (01/08/21 14:45) Vital Signs/I&O 01/08/21 01/08/21 13:37 15:12 Temp 36.9 Pulse 101 88 Resp 18 18 B/P (MAP) 116/79 (91) 114/72 (91) Pulse Ox 100 100 Blood Pressure Mean: 91 Progress Progress Note : Time: 15:00 Progress Note Patient reassured, urine is within normal limits, no evidence of infection. I did identify via bedside ultrasound heart motion in the uterus. I do not believe that the patient is as far along as she believes she is however. She wheels out to be 9 weeks and 1 day[address] her due date at August 14, 2021. Patient has not yet established at [facility] for OB care but is in the process of doing so. I advised against hot baths for her pain. Not at this stage in anyways. Tylenol at 1000 mg every 6 hours, the lidocaine patches and ice packs. I have given patient good return precautions to include returning if she develops a rash, fever, vomiting, blood in her urine or any other emergent concerns. She is comfortable with this plan of care. All questions were sought and answered. At this stage I do not believe that she has a kidney stone. Her pain is too low in the left flank. I do not have a concern for ectopic . Patient is comfortable with discharge home. Departure Impression Primary Impression: Left flank pain Additional Impression: First trimester Disposition: 01 HOME, SELF-CARE Condition: Stable Departure-Patient Inst. Decision time for Depature: 15:02 Referrals: [facility] (PCP/Family) Primary Care Physician Patient Instructions: - The Second Month Add. Discharge Instructions: Drink plenty of fluids to stay well-hydrated. You can take 2 extra strength Tylenol every 6 hours as needed for pain. Use ice packs to the sore area of your left back. You can also use the lidocaine patches. Follow-up with [facility]. Come back to the emergency department for any worsening pain especially if you develop a rash, fever, blood in your urine or any other emergent concerning symptoms. APPLE MEZA MD Jan 08, 2021 14:03
[2021-01-08 14:15] LABS: BILIRUBIN,URINE NEGATIVE (NEGATIVE); CLARITY,URINE CLEAR; COLOR,URINE YELLOW; GLUCOSE, URINE (UA) NEGATIVE (NEGATIVE); KETONES,URINE NEGATIVE (NEGATIVE); LEUKOCYTE ESTERASE ,URINE TRACE (NEGATIVE); NITRITE,URINE NEGATIVE (NEGATIVE); PROTEIN,URINE NEGATIVE (NEGATIVE)
[2021-01-08 14:27] LABS: BACTERIA,URINE TRACE /HPF; WBC,URINE RARE /HPF
[2021-01-08] MEDS ORDERED: ACETAMINOPHEN 500 MG TAB (TYLENOL) PO ONE (14:45)
[2021-01-08 15:12] VITALS: BP 114/72
== END 2021-01-08 15:12 | disposition home or self-care (01) ==
LOC: EDUNIT# 13:17 → ER 13:19
DX: O26.891 Other specified pregnancy related conditions, first trimester (principal); R10.32 Left lower quadrant pain; Z3A.09 9 weeks gestation of pregnancy; Z77.22 Contact with and (suspected) exposure to environmental tobacco smoke (acute) (chronic)
CPT/HCPCS: 81000; 99283

== ENCOUNTER → 2021-03-14 | Outpatient (CLI) | payer MEDICAID ==
[2021-03-14 16:06] LABS: BASOPHILS % (AUTO) 0 % (0-10); EOSINOPHILS # (AUTO) 0.1 10^3/uL (0.0-0.3); EOSINOPHILS % (AUTO) 1 % (0-10); HEMATOCRIT 33 % (35-52); LYMPHOCYTES # (AUTO) 2.1 10^3/uL (1.0-4.0); LYMPHOCYTES % (AUTO) 19 % (12-44); MEAN CORPUSCULAR HEMOGLOBIN 32 pg (25-34); MEAN CORPUSCULAR HGB CONC 34 g/dL (32-36); MEAN CORPUSCULAR VOLUME 96 fL (80-99); MEAN PLATELET VOLUME 9.2 fL (9.0-12.2); MONOCYTES # (AUTO) 0.6 10^3/uL (0.0-1.0); MONOCYTES % (AUTO) 5 % (0-12); NEUTROPHILS # (AUTO) 8.4 10^3/uL (1.8-7.8); NEUTROPHILS % (AUTO) 74 % (42-75); PLATELET COUNT 302 10^3/uL (130-400); WHITE BLOOD COUNT 11.3 10^3/uL (4.3-11.0)
== END ==
LOC: LAB 15:31
PROVIDERS: ATTEND Family Medicine
DX: Z34.92 Encounter for supervision of normal pregnancy, unspecified, second trimester (principal); Z3A.00 Weeks of gestation of pregnancy not specified
CPT/HCPCS: 36415; 84443; 85025; 86703; 86762; 86780; 86850; 86900; 86901; 87340

== ENCOUNTER 2021-08-16 06:30 | Inpatient (IN) | payer MEDICAID ==
[~2021-08-16] VITALS: Ht 170 cm; Wt 100.5 kg
[2021-08-20] VITALS (49 sets, daily range): BP systolic 85–146; BP diastolic 45–87
[2021-08-20] MEDS ORDERED: PREN1TAB79 PO (06:12)
[2021-08-20] MEDS ORDERED: MEPIVACAINE (CARBOCAINE) 2% 50 ML VIAL INJ PRN (06:15)
[2021-08-20] MEDS ORDERED: D5 LR IV SOLUTION 1,000 ML IV SCH (06:15)
[2021-08-20] MEDS ORDERED: MINERAL OIL CONCENTRATE 99.9% 15 ML UDC TOP PRN (06:15)
[2021-08-20] MEDS ORDERED: D5 LR IV SOLUTION 1,000 ML IV ONE (06:35)
--- NOTE | 2021-08-20 06:35 | History & Physical-OB ---
OB - Chief Complaint & HPI Date/Time Date of Admission: Date of Admission: Aug 20, 2021 at 06:00 Date seen by a Provider: Aug 20, 2021 Time Seen by a Provider: 06:30 Chief Complaint/History OB-Reason for Admission/Chief: Induction of Labor Hx : 7 Hx Para: 4 Expected Date of Delivery: Aug 23, 2021 Gestational Age in Weeks: 39 Gestational Age in Days: 4 Admission Nurse Assessment Rev: Yes History of Labs GBS negative at 36 weeks gestation Allergies and Home Medications Allergies Coded Allergies: No Known Drug Allergies (Unverified , 11/23/10) Patient Home Medication List Home Medication List Reviewed: Yes Vit W-Ca,Fe,FA(<1 mg) ( Vitamins) 1 Each Tablet, 1 EACH PO, (Reported) Entered as Reported by: VERITO GARCIA on 08/20/21611 Last Action: New Order Discontinued Medications Cephalexin (Cephalexin) 500 Mg Tablet, 500 MG PO BID Discontinued Reason: No Longer Taking Prescribed by: SUSAN BAZZI on 04/28/172027 Last Action: Discontinued Doxycycline Hyclate (Doxycycline Hyclate) 100 Mg Tablet, 100 MG PO BID Discontinued Reason: No Longer Taking Prescribed by: COLEEN APONTE on 10/21/182212 Last Action: Discontinued Hydrocodone/Acetaminophen (Hydrocodone/Acetaminophen 5 MG/325 MG TAB) 1 Each Tablet, 1 EACH PO Q6H PRN for PAIN-MODERATE Discontinued Reason: No Longer Taking Prescribed by: COLEEN APONTE on 10/21/182212 Last Action: Discontinued Metronidazole (Flagyl) 500 Mg Tablet, 500 MG PO BID Discontinued Reason: No Longer Taking Prescribed by: COLEEN APONTE on 10/21/182212 Last Action: Discontinued [Hydrocortisone otic] , 3 DROPS 3 times a day Discontinued Reason: No Longer Taking Prescribed by: BABRRA CARDOZA on 02/21/17 1320 Last Action: Discontinued OB - History Hx of Present Care: Yes Ultrasounds: Normal mid trimester US Obstetrical Complications: None Medical Complications: None Obstetrical History Hx Termination: No Hx Multiple Gestation: No Hx Stillbirth: No Hx Complication: No Hx Induced Hypertens: No Hx Maternal Gestational Diabet: No Delivery History Hx Dystocia: No Hx Large For Gestational Age I: No Hx Small for Gestational Age I: No Hx Section: No Hx Vaginal Delivery Post C-Sec: No Hx Blood Disorders: No Adverse Rxn to Tranfusion: No Patient Past Medical History 2021 Covid during Social History/Family History 2nd Hand Smoke Exposure: Yes Immunizations Influenza Vaccine Up-to-Date: No; Not Current Tetanus Booster (TDap): Less than 5yrs OB - Admission Exam Physical Exam Vitals: Vital Signs 08/20/21 06:22 Temp 35.6 Pulse 107 Resp 16 Pulse Ox 99 O2 Delivery Room Air HEENT: Moist Membranes Heart: Rhythm Normal Lungs: Clear Abdomen: Gravid Cervical Dilatation: 2cm Effacement: 75% Station: -3 Membranes: Intact Heart Rate: 140's Accelerations: No Accelerations Decelerations: No Decelerations Short Term Variability: Present Acid Recovery Operator Variability: Minimal (3-5) Contractions on Admission: >10 Minutes Apart Intensity: Mild Bravo Scoring Tool (Modified) Dilation (cm): 1-2cm (1) Effacement (%): 51-79% (2) Descent/Station: -3 (0) Cervix Consistency: Medium(1) Cervix Position: Middle/Mid-Position (1) OB - Assessment/Plan/Diagnosis Assessment Assessment: induction of labor Admission Dx 1. IUP at term 39w4d gestation 2. Advanced maternal age Admission Status: Inpatient Order (span 2 midnights) Reason for Inpatient Admission: L&D Plan Plan: Induction Induction Method: AROM Other Plan -pitocin as necessary -desires epidural GLADYS CARDONA MD Aug 20, 2021 06:35
[2021-08-20] MEDS ORDERED: OXYTOCIN PRE-MIX DRIP 500 ML IV SCH ×2 (07:30→17:15)
[2021-08-20 08:16] LABS: BASOPHILS % (AUTO) 0 % (0-10); EOSINOPHILS # (AUTO) 0.1 10^3/uL (0.0-0.3); EOSINOPHILS % (AUTO) 1 % (0-10); HEMATOCRIT 34 % (35-52); HEMOGLOBIN 11.5 g/dL (11.5-16.0); LYMPHOCYTES # (AUTO) 2.2 10^3/uL (1.0-4.0); LYMPHOCYTES % (AUTO) 20 % (12-44); MEAN CORPUSCULAR HEMOGLOBIN 30 pg (25-34); MEAN CORPUSCULAR HGB CONC 34 g/dL (32-36); MEAN CORPUSCULAR VOLUME 90 fL (80-99); MEAN PLATELET VOLUME 9.4 fL (9.0-12.2); MONOCYTES # (AUTO) 0.8 10^3/uL (0.0-1.0); MONOCYTES % (AUTO) 7 % (0-12); NEUTROPHILS # (AUTO) 7.7 10^3/uL (1.8-7.8); NEUTROPHILS % (AUTO) 71 % (42-75); PLATELET COUNT 264 10^3/uL (130-400); WHITE BLOOD COUNT 10.8 10^3/uL (4.3-11.0)
[2021-08-20] MEDS ORDERED: fentaNYL 2 mcg/ml BUPIVA 0.125 100 ML ONE (10:20)
[2021-08-20] MEDS ORDERED: BUPIVACAINE 0.25% 30 ML (SENSORCAINE) VIAL ONE (10:37)
[2021-08-20] MEDS ORDERED: fentaNYL INJ 100 MCG/2 ML AMP ONE (10:37)
[2021-08-20] MEDS ORDERED: LACTATED RINGERS 1,000 ML IV ONE (11:15)
[2021-08-20] MEDS ORDERED: NALOXONE 0.4 MG/ML 1 ML (NARCAN) VIAL IV PRN ×2 (11:15→17:15)
[2021-08-20] MEDS ORDERED: fentaNYL 2 mcg/ml BUPIVA 0.125 100 ML IV SCH (11:15)
[2021-08-20] MEDS ORDERED: CATHETER FLUSH 10 ML SYR IV PRN (11:15)
[2021-08-20] MEDS ORDERED: CATHETER FLUSH 10 ML SYR IV SCH (14:00)
--- NOTE | 2021-08-20 17:05 | OB Labor & Delivery Record ---
L&D History Date of Service Date of Service: Aug 20, 2021 History Expected Date of Delivery: Aug 23, 2021 Gestational Age in Weeks: 39 Hx : 7 Hx Para: 5 Complications Events: Routine care Operative Indications (Cesarea: N/A-Vaginal Delivery Intrapartal Events: None L&D Stage1 Stage One Onset of Labor - Date: Aug 20, 2021 Onset of Labor - Time: 06:55 Monitors and Tracing Monitor Mode: Internal Heart Rate: 135 Monitor Accelerations: Uniform Monitor Decelerations: None Station: 0 Multifocal Button Inspector Variability: Average (6-10) Short Term Variability: Present Presentation: Vertex Vital Signs VS - Last 72 Hours, by Label 08/20/21 08/20/21 08/20/21 08/20/21 06:22 07:45 08:15 08:30 Temp 35.6 36.8 Pulse 107 83 87 86 Resp 16 20 20 20 B/P (MAP) 122/72 (89) 118/77 (91) 101/73 (82) Pulse Ox 99 O2 Delivery Room Air 08/20/21 08/20/21 08/20/21 08/20/21 08:45 09:00 09:15 09:30 Pulse 88 83 86 90 Resp 20 20 20 20 B/P (MAP) 108/72 (84) 122/73 (89) 123/76 (92) 115/83 (94) 08/20/21 08/20/21 08/20/21 08/20/21 09:45 10:00 10:15 10:30 Pulse 79 85 83 83 Resp 20 20 20 20 B/P (MAP) 116/63 (80) 113/72 (86) 110/71 (84) 115/75 (88) 08/20/21 08/20/21 08/20/21 08/20/21 10:45 10:50 11:00 11:05 Temp 36.0 Pulse 84 85 83 90 Resp 20 20 20 20 B/P (MAP) 134/87 (103) 127/83 (98) 127/74 (91) 129/73 (91) Pulse Ox 100 100 100 08/20/21 08/20/21 08/20/21 08/20/21 11:10 11:15 11:20 11:25 Pulse 89 90 88 90 Resp 20 20 20 20 B/P (MAP) 123/70 (87) 119/68 (85) 116/65 (82) 129/63 (85) Pulse Ox 99 97 97 98 08/20/21 08/20/21 08/20/21 08/20/21 11:30 11:45 12:00 12:15 Pulse 86 84 84 80 Resp 20 20 20 20 B/P (MAP) 114/59 (77) 118/69 (85) 117/69 (85) 112/70 (84) Pulse Ox 98 97 98 97 08/20/21 08/20/21 08/20/21 08/20/21 12:30 12:45 13:00 13:15 Temp 36.2 Pulse 77 84 84 76 Resp 20 20 20 20 B/P (MAP) 110/72 (85) 108/70 (83) 97/54 (68) 106/68 (81) Pulse Ox 96 99 100 99 08/20/21 08/20/21 08/20/21 08/20/21 13:30 13:45 14:00 14:15 Pulse 95 78 81 104 Resp 20 20 20 20 B/P (MAP) 108/74 (85) 123/70 (87) 120/71 (87) 116/70 (85) Pulse Ox 100 99 100 100 08/20/21 08/20/21 08/20/21 08/20/21 14:30 14:45 15:00 15:15 Pulse 85 85 84 77 Resp 20 20 20 20 B/P (MAP) 117/75 (89) 120/74 (89) 120/78 (92) 126/79 (95) Pulse Ox 97 100 100 100 Signs of Distress by FHT Signs of Distress no Rupture of Membranes Spontaneous Ruture of Membrane: No Amniotic Membrane Rupture Time: 0646 Amniotic Membrane Fluid Desc.: Clear Vaginal Bleeding Description: None Induction/Anesthesia Epidural Cath Placement - Time: 1048 L&D Stage2 Stage Two Stage II Date: Aug 20, 2021 Stage II Time: 16:28 Monitors and Tracing Monitor Mode: Internal Heart Rate: 135 Monitor Accelerations: Uniform Monitor Decelerations: None Fdc Variability: Average (6-10) Short Term Variability: Present Position: Left Occiput Anterior Presentation: Vertex Signs of Distress by FHT Signs of Distress no Cord Descript/Complications Cord Vessel Description: 3 Vessels Delivery Type Infant Delivery Method: Spontaneous Vaginal Anterior Shoulder: Left Episiotomy/Perineal Laceration Laceraction(s)/Extensions: No Episiotomy Description: Perineal Extension/lac, 1st degree (minor) Sutures Used: Vicryl Condition of Infant Delivery 1 minute Comment: 8 5 minute Comment: 9 Condition of Infant Condition of Infant: Living Exam: No Observed Abnormalities Resuscitation Resuscitation: N/A - Spontaneous Resp L&D Stage3 Stage Three Stage III Date: Aug 20, 2021 Stage III Time: 16:34 Pictocin Pitocin Administration mu/min: 14 Pitocin ml/hr: 125 Placenta Delivery Placenta Delivery: Spontaneous Delivery Summary Summary Estimated blood loss (mL): 150 Condition of Delivery Examined: Cervix Examined Post Hemorrhage: No Intervention Required none GLADYS CARDONA MD Aug 20, 2021 17:05
[2021-08-20] MEDS ORDERED: MEASLES,MUMPS,RUBELLA 1 EA INJ SQ ONE (17:15)
[2021-08-20] MEDS ORDERED: WITCH HAZEL(TUCKS) 40 EA JAR TOP PRN (17:15)
[2021-08-20] MEDS ORDERED: BENZOCAINE/MENTHOL (DERMOPLAST) 56 ML CAN TP PRN (17:15)
[2021-08-20] MEDS ORDERED: TETANUS,DIPTH,PERTUSS P/F (BOOSTRIX) 0.5 ML VIAL IM ONE (17:15)
[2021-08-20] MEDS: ACETAMINOPHEN 500 MG TAB (TYLENOL) PO SCH (18:29)
[2021-08-20] MEDS: IBUPROFEN 600 MG (MOTRIN) TAB PO SCH ×2 (18:29→22:26)
[2021-08-20] MEDS: DOCUSATE SODIUM 100 MG (COLACE) CAP PO SCH (22:26)
[2021-08-20] MEDS: CATHETER FLUSH 10 ML SYR IV SCH (22:26)
[2021-08-21 02:15] VITALS: BP 112/62
[2021-08-21] MEDS: IBUPROFEN 600 MG (MOTRIN) TAB PO SCH ×3 (05:17→18:07)
[2021-08-21] MEDS: ACETAMINOPHEN 500 MG TAB (TYLENOL) PO SCH ×2 (05:39)
[2021-08-21] MEDS: CATHETER FLUSH 10 ML SYR IV SCH (06:05)
[2021-08-21 08:33] LABS: BASOPHILS % (AUTO) 0 % (0-10); EOSINOPHILS # (AUTO) 0.1 10^3/uL (0.0-0.3); EOSINOPHILS % (AUTO) 1 % (0-10); HEMATOCRIT 30 % (35-52); HEMOGLOBIN 10.4 g/dL (11.5-16.0); LYMPHOCYTES # (AUTO) 2.7 10^3/uL (1.0-4.0); LYMPHOCYTES % (AUTO) 23 % (12-44); MEAN CORPUSCULAR HEMOGLOBIN 31 pg (25-34); MEAN CORPUSCULAR HGB CONC 34 g/dL (32-36); MEAN CORPUSCULAR VOLUME 90 fL (80-99); MEAN PLATELET VOLUME 9.7 fL (9.0-12.2); MONOCYTES % (AUTO) 8 % (0-12); NEUTROPHILS % (AUTO) 67 % (42-75); PLATELET COUNT 215 10^3/uL (130-400)
[2021-08-21 12:29] VITALS: BP 115/55
[2021-08-21] MEDS: DOCUSATE SODIUM 100 MG (COLACE) CAP PO SCH (12:29)
--- NOTE | 2021-08-21 13:33 | Discharge Summary ---
Diagnosis/Chief Complaint Date of Admission Aug 20, 2021 at 06:00 Date of Discharge August 21, 2021 Admission Diagnosis Admission Diagnosis 1. Intrauterine at 39 weeks gestation 2. Advanced maternal age Discharge Diagnosis 1. Intrauterine at 39 weeks gestation 2. Advanced maternal age Chief Complaint/HPI Chief Complaint/HPI 41-year-old female 7 now term 5 L5 and initially presented for induction of labor during the morning of August 20, 2021. She was noted to be at 39 weeks 4 days gestation. Her care was essentially unremarkable except during the last week of her she did develop Covid 19. Discharge Summary-OBS Procedures 1. Epidural per anesthesia 2. Spontaneous vaginal delivery 3. Repair of minor perineal tear Discharge Physical Examination Allergies: Coded Allergies: No Known Drug Allergies (Unverified , 11/23/10) Vitals & I&Os Vital Sign - Last 12Hours Date Time Temp Pulse Resp B/P (MAP) Pulse Ox O2 Delivery O2 Flow Rate FiO2 08/21/21 12:29 35.9 90 16 115/55 (75) 99 Room Air General Appearance: No Acute Distress Respiratory: Clear to Auscultation Cardiovascular: Regular Rate Abdominal: Soft (with uterus firm) Neuro: Normal Speech Hospital Course Was the Problem List Reviewed?: Yes upon admission she underwent routine antepartum care orders. She did require PICC line for IV access due to poor peripheral veins. She also underwent epidural per anesthesia during labor and had excellent pain relief. She required Pitocin augmentation. Eventually she went to completion and delivered a term viable male over a very minor perineal laceration. If received Apgars of 8 at 1 minute and 9 at 5 minutes. See labor and delivery note for full details. Following delivery patient underwent routine care orders. She had no complications during the remainder of hospital stay. She tolerated regular diet and was noted to have no significant vaginal bleeding. Her hemoglobin in the morning of August 21 was noted to be 10.4 compared to 11.5 on admission. Labs Laboratory Tests 08/21/21 08:16: White Blood Count 12.0H, Red Blood Count 3.37L, Hemoglobin 10.4L, Hematocrit 30L , Mean Corpuscular Volume 90, Mean Corpuscular Hemoglobin 31, Mean Corpuscular Hemoglobin Concent 34, Red Cell Distribution Width 12.9, Platelet Count 215, Maureen n Platelet Volume 9.7, Immature Granulocyte % (Auto) 1, Neutrophils (%) (Auto) 67, Lymphocytes (%) (Auto) 23, Monocytes (%) (Auto) 8, Eosinophils (%) (Auto) 1, Basophils (%) (Auto) 0, Neutrophils # (Auto) 8.0H, Lymphocytes # (Auto) 2.7, Monocytes # (Auto) 1.0, Eosinophils # (Auto) 0.1, Basophils # (Auto) 0.0, Immature Granulocyte # (Auto) 0.1 Discharge Instructions to patient/family Please see electronic discharge instructions given to patient. Discharge Medications Reviewed and agree with Discharge Medication list on patient's Discharge Instruction sheet GLADYS CARDONA MD Aug 21, 2021 13:33
[2021-08-21] MEDS ORDERED: IBUP-844 PO (13:34)
--- NOTE | 2021-08-21 13:36 | Discharge Inst-Women's Service ---
Discharge Inst-Women's Serv Depart Medication/Instructions New, Converted or Re-Newed RX: Transmitted to Pharmacy ([facility]) Problems Reviewed?: Yes Consults/Follow Up Additional Follow Up: Yes (Dr Cardona at [facility] in 6 weeks) Diet Discharge Diet: Regular Diet Return to The Hospital For: as below Symptoms to Report to : Bleeding Excessive, Fever Over 101 Degrees F, Vaginal Discharge Foul For Any Problems or Questions: Contact Your Physician GLADYS CARDONA MD Aug 21, 2021 13:36
--- NOTE | 2021-08-21 15:36 | Anesthesia-Regional Post-Op ---
Regional Patient Condition Mental Status: Alert, Oriented x3 Circulation: Same as Pre-Op Headache: Absent Sensation: Full Recovery Motor Block: Absent Post Op Complications Complications None Follow Up Care/Instructions Patient Instructions None needed. Anesthesia/Patient Condition Patient is doing well, no complaints, stable vital signs, no apparent adverse anesthesia problems. SHAQUILLE CARRERA DO Aug 21, 2021 15:36
[2021-08-21 18:08] VITALS: BP 136/75
== END 2021-08-21 18:45 | disposition home or self-care (01) | DRG 807 ==
LOC: LDRP 08-20 06:00
PROVIDERS: ADMIT Family Medicine; ATTEND Family Medicine
PROC: 10E0XZZ Delivery of Products of Conception, External Approach (ICD-10-PCS; principal; 2021-08-20)
PROC: 10907ZC Drainage of Amniotic Fluid, Therapeutic from Products of Conception, Via Natural or Artificial Opening (ICD-10-PCS; 2021-08-20)
PROC: 0HQ9XZZ Repair Perineum Skin, External Approach (ICD-10-PCS; 2021-08-20)
DX: O70.0 First degree perineal laceration during delivery (principal); Z37.0 Single live birth; Z3A.39 39 weeks gestation of pregnancy
CPT/HCPCS: 36410; 36415; 76937; 85025; 86850; 86900; 86901; 90707